=== PATIENT | male | born 1980 | race Caucasian/White ===

== ENCOUNTER 2023-05-27 13:05 | Outpatient (CLI) | payer OTHER | END 2023-05-27 13:06 | disposition home or self-care (01) | LOC: SCSRAD 13:05 | PROVIDERS: ATTEND Chiropractor | DX: M46.03 Spinal enthesopathy, cervicothoracic region (principal); M47.812 Spondylosis without myelopathy or radiculopathy, cervical region | CPT/HCPCS: 72040 ==